=== PATIENT | male | born 1945 | race Caucasian/White ===

== ENCOUNTER 2019-03-17 06:30 | Day surgery (SDC) | payer BC, MEDICARE ==
[2019-03-17] MEDS ORDERED: Bupivacaine 0.5% 50 ML MDV ONE (06:46)
[2019-03-17] MEDS ORDERED: Lidocaine 1% with EPINEPHrine 1:100,000 50 ML MDV ONE (06:46)
[2019-03-17] MEDS ORDERED: Sodium Chloride 0.9% 1,000 ML IV SCH (07:00)
[2019-03-17] MEDS ORDERED: Dexamethasone 4 MG/ML SDV ONE (07:24)
[2019-03-17] MEDS ORDERED: Neostigmine Methylsulfate 1 MG/ML 5 ML Syringe ONE (07:24)
[2019-03-17] MEDS ORDERED: Glycopyrrolate 0.2 MG/ML 5 ML MDV ONE (07:24)
[2019-03-17] MEDS ORDERED: Ondansetron 4 MG/2 ML SDV ONE (07:24)
[2019-03-17] MEDS ORDERED: Succinylcholine 200 MG/10 ML MDV ONE (07:24)
[2019-03-17] MEDS ORDERED: Ketorolac 60 MG/2 ML SDV ONE (07:24)
[2019-03-17] MEDS ORDERED: Propofol 200 MG/20 ML SDV ONE (07:24)
[2019-03-17] MEDS ORDERED: Rocuronium 50 MG/5 ML Vial ONE (07:24)
[2019-03-17] MEDS ORDERED: fentaNYL 250 MCG/5 ML SDV ONE (07:26)
[2019-03-17] MEDS ORDERED: ceFAZolin 2 GM in Premix Bag 1 BAG IV ONE (07:30)
[2019-03-17] MEDS ORDERED: metroNIDAZOLE/Normal Saline 500 MG in Premix Bag 1 BAG IV ONE (07:30)
[2019-03-17] MEDS ORDERED: Ropivacaine 30 ML, dexAMETHasone 8 MG, EPINEPHrine 0.4 MG, Sodium Chloride 0.9% 47.6 ML NERVRT SCH ×4 (08:00)
[2019-03-17] MEDS ORDERED: fentaNYL 100 MCG/2 ML SDV ONE (08:24)
--- NOTE | 2019-03-17 15:14 | OR ---
DATE OF PROCEDURE: 03/17/2019 SURGEON: Jacek Oh MD PROCEDURE: Right total extraperitoneal hernia repair. PREOPERATIVE DIAGNOSIS: Hernia. POSTOPERATIVE DIAGNOSIS: Hernia. COMPLICATIONS: None. TRACK SERVICE PERSON: None. ANESTHESIA: General. RISKS: Risks, benefits, alternatives, and limitations including, but not limited to infection, bleeding, testicular atrophy, injury to testicular structures, requirement for reoperation, other risks not listed here were explained to the patient, who wished to proceed. FINDINGS: Direct inguinal hernia. PROCEDURE IN DETAIL: The patient was placed in a supine position. An infraumbilical linear incision was made. This was carried with electrocautery down to the fascia, which was also opened with electrocautery. The preperitoneal space was developed with a Pean. The dissecting balloon was then inserted and pumped approximately 30 times. This was under direct visualization. This was held for 1 minute. The retaining balloon was then insufflated. Two additional 5 mm ports were entered under direct visualization. The dissection initiated from a lateral to medial approach. This was blunt in nature in an avascular plane. The hernia was readily identified. The peritoneum was deflected and removed from the hernia space. During this dissection, the vas deferens and associated blood vessels were identified and not interacted with them any way. At no time was the "triangle of doom" nor the "triangle of pain" entered or interacted with. The mesh was then cut just with a curved aspect, introduced, and unfolded. This overlapped the pubic symphysis approximately 1 to 2 cm and was unfolded without difficulty. The operating area was inspected for bleeding or abnormality. None was noted. The mesh was held in place as the space was deflated. Ports were removed. The fascia was closed with #1 Vicryl in interrupted fashion, irrigated, closed with 3-0 Vicryl and 4-0 Vicryl, Dermabond was applied. The patient tolerated the procedure well. Jacek Oh MD /[id number]
--- NOTE | 2019-03-17 15:20 | OR ---
DATE OF PROCEDURE: 03/17/2019 SURGEON: Jacek Oh MD PROCEDURE: Total transversus abdominis plane block. COMPLICATIONS: None. GATE SERVICES SUPERVISOR: None. RISKS: Risks, benefits, alternatives, and limitations including, but not limited to infection, bleeding, and injury were explained to the patient who wished to proceed. PROCEDURE IN DETAIL: The patient was placed in supine position. The left transversus plane was identified first. This was injected under direct ultrasound guidance with approximately 90% of the solution. The right side was then performed in a same manner, same fashion, same technique in the same sequence using the same equipment, except for different needle and syringe. The patient tolerated the procedure well. Jacek Oh MD /[id number]
== END 2019-03-17 10:30 | disposition home or self-care (01) ==
LOC: JP.SDS 06:30
PROVIDERS: ATTEND Surgery
DX: K40.90 Unilateral inguinal hernia, without obstruction or gangrene, not specified as recurrent (principal); G89.18 Other acute postprocedural pain; M48.00 Spinal stenosis, site unspecified; N40.0 Benign prostatic hyperplasia without lower urinary tract symptoms
CPT/HCPCS: C1781; J0171; J0330; J0690; J1100; J1885; J2405; J2704; J2710; J2795; J3010; J3490; J7030; J7050

== ENCOUNTER 2020-02-17 08:56 | Emergency (ER) | payer OTHER, MEDICARE ==
--- NOTE | 2020-02-17 10:17 | EDM.PDOC ---
ED HPI GENERAL MEDICAL PROBLEM - General Chief Complaint: Cardiovascular Problem Stated Complaint: mid sternal pain Time Seen by Provider: 02/17/20 09:00 Source of Information: Reports: Patient, Family History Limitations: Reports: No Limitations - History of Present Illness INITIAL COMMENTS - FREE TEXT/NARRATIVE: 74-year-old male with no previous cardiac history, presents with 2 to 3 days of escalating substernal and epigastric pain with activity. This morning he was uncomfortable enough to have pallor and diaphoresis. Initially he thought antacids helping but it did not help this morning. It goes away with rest. The pain was fairly intense when he came into the hospital but by the time we got him into the emergency room it had resolved again. Onset: Gradual (Gradually worsening over the past several days) Location: Reports: Chest, Abdomen Improves with: Reports: Rest Worsens with: Reports: Other (Activity) Associated Symptoms: Reports: Chest Pain. Denies: Confusion, Cough, Fever/Chills, Nausea/Vomiting, Shortness of Breath Mid-Sternal Pain Score (Numeric/FACES): 7 - Related Data Allergies Allergy/AdvReac Type Severity Reaction Status Date / Time No Known Allergies Allergy Verified 02/17/20 09:01 Home Meds: Home Meds NK [No Known Home Meds] 02/17/20 [History] Past Medical History HEENT History: Reports: Impaired Vision Gastrointestinal History: Reports: None - Infectious Disease History Infectious Disease History: Reports: Chicken Pox, Shingles - Past Surgical History Head Surgeries/Procedures: Reports: None HEENT Surgical History: Reports: None GI Surgical History: Reports: Colonoscopy Dermatological Surgical History: Reports: None Social & Family History - Family History Family Medical History: Noncontributory - Tobacco Use Smoking Status *Q: Never Smoker Second Hand Smoke Exposure: No - Caffeine Use Caffeine Use: Reports: Coffee - Alcohol Use Days Per Week of Alcohol Use: 7 Number of Drinks Per Day: 1 Total Drinks Per Week: 7 - Recreational Drug Use Recreational Drug Use: No ED ROS GENERAL - Review of Systems Review Of Systems: See Below Constitutional: Denies: Fever, Chills HEENT: Reports: No Symptoms (Pain does not radiate to the jaw or teeth) Respiratory: Denies: Shortness of Breath, Cough Cardiovascular: Reports: Chest Pain. Denies: Palpitations GI/Abdominal: Reports: Abdominal Pain (Epigastric area only). Denies: Nausea, Vomiting Skin: Reports: Pallor (Just this morning only), Diaphoresis Neurological: Reports: No Symptoms ED EXAM, GENERAL - Physical Exam Exam: See Below Exam Limited By: No Limitations General Appearance: Alert, No Apparent Distress Head: Atraumatic Respiratory/Chest: No Respiratory Distress, Lungs Clear Cardiovascular: Regular Rate, Rhythm GI/Abdominal: Soft, Non-Tender, Other (I cannot reproduce his pain with palpation of the upper abdomen) Extremities: Normal Inspection. No: Pedal Edema Neurological: Alert, Oriented Psychiatric: Normal Affect, Normal Mood Skin Exam: Warm, Dry EKG INTERPRETATION Rhythm: NSR Course - Vital Signs Last Recorded V/S: Last Vital Signs Temp 97.2 F 02/17/20 09:04 Pulse 70 02/17/20 11:32 Resp 15 02/17/20 11:32 BP 159/69 H 02/17/20 11:32 Pulse Ox 99 02/17/20 11:32 - Orders/Labs/Meds Orders: Active Orders 24 hr Category Date Time Status EKG 12 Lead [EK] Routine Ther 02/17/20 09:09 Ordered Labs: Laboratory Tests 02/17/20 02/17/20 Range/Units 09:50 09:50 WBC 6.1 (4.5-11.0) K/uL RBC 4.43 (4.30-5.90) M/uL Hgb 13.9 (12.0-15.0) g/dL Hct 42.5 (40.0-54.0) % MCV 96 (80-98) fL MCH 31 (27-31) pg MCHC 33 (32-36) % Plt Count 258 (150-400) K/uL Neut % (Auto) 55 (36-66) % Lymph % (Auto) 26 (24-44) % Barber % (Auto) 8 H (2-6) % Eos % (Auto) 10 H (2-4) % Baso % (Auto) 1 (0-1) % Sodium 141 (140-148) mmol/L Potassium 3.8 (3.6-5.2) mmol/L Chloride 106 (100-108) mmol/L Carbon Dioxide 29 (21-32) mmol/L Anion Gap 5.9 (5.0-14.0) mmol/L BUN 18 (7-18) mg/dL Creatinine 1.2 (0.8-1.3) mg/dL Est Cr Clr Drug Dosing 46.78 mL/min Estimated GFR (MDRD) 59 L (>60) Glucose 109 H (74-106) mg/dL Calcium 9.0 (8.5-10.1) mg/dL Total Bilirubin 0.8 (0.2-1.0) mg/dL AST 14 L (15-37) U/L ALT 19 (12-78) U/L Alkaline Phosphatase 73 (46-116) U/L Troponin I 0.310 H* (0.000-0.056) ng/mL Total Protein 6.6 (6.4-8.2) g/dL Albumin 3.2 L (3.4-5.0) g/dL Globulin 3.4 (2.3-3.5) g/dL Albumin/Globulin Ratio 0.9 L (1.2-2.2) Meds: Medications Discontinued Medications Generic Name Dose Route Start Last Admin Trade Name Freq PRN Reason Stop Dose Admin Aspirin 324 mg 02/17/20 10:33 02/17/20 10:42 Aspirin PO 02/17/20 10:34 324 mg ONETIME ONE Administration Heparin Sodium (Porcine) 5,000 units 02/17/20 10:33 02/17/20 10:42 Heparin Sodium IVPUSH 02/17/20 10:34 5,000 units ONETIME ONE Administration Heparin Sodium/Dextrose 25,000 units in 500 mls @ 16 mls/hr 02/17/20 10:45 02/17/20 10:55 Heparin 25,000 Units In D5w 500 Ml IV 800 units/hr TITRATE ARIK 16 mls/hr Administration Protocol 800 UNITS/HR Ticagrelor 180 mg 02/17/20 10:33 02/17/20 10:42 Brilinta PO 02/17/20 10:34 180 mg ONETIME ONE Administration - Re-Assessments/Exams Free Text/Narrative Re-Assessment/Exam: 02/17/20 10:35 Initial EKG was completely normal so aspirin was held until further evaluation. CBC, CMP and troponin were obtained. Patient was kept on cardiac monitoring and redeveloped no additional pain while in the emergency room but his troponin returned elevated at 0.3. At this point he was given 324 mg of chewable aspirin, 120 mg of p.o. Brilinta, heparin bolus and heparin drip was started. Patient is discussing with his where he would like to be sent for further evaluation. 02/17/20 12:52 Patient was accepted by the hospitalist service at [facility] and will be transferred by EMS. Departure - Departure Time of Disposition: 12:27 Disposition: DC/Tfer to Acute Hospital 02 Reason for Transfer *Q: Other Clinical Impression: Non-STEMI (non-ST elevated myocardial infarction) Referrals: Lonnie Hoyos MD [Primary Care Provider] - Forms: ED Department Discharge Care Plan Goals: Patient is to be transferred to be directly admitted to [facility] for cardiology evaluation and further care, likely needing intervention for non- STEMI. Sepsis Event Note (ED) - Evaluation Sepsis Screening Result: No Definite Risk - Focused Exam Vital Signs: Vital Signs Temp Pulse Resp BP Pulse Ox 02/17/20 11:32 70 15 159/69 H 99 02/17/20 11:12 63 11 L 155/65 H 97 02/17/20 10:25 63 13 133/59 L 100 02/17/20 10:20 58 L 16 121/49 L 99 02/17/20 09:11 58 L 10 L 140/58 L 98 02/17/20 09:04 97.2 F 62 10 L 147/61 H 99 02/17/20 08:57 62 8 L 147/61 H 100 02/17/20 08:56 62 10 L 137/50 L 98 - My Orders Last 24 Hours: My Active Orders 02/17/20 09:09 EKG 12 Lead [EK] Routine - Assessment/Plan Last 24 Hours: My Active Orders 02/17/20 09:09 EKG 12 Lead [EK] Routine
[2020-02-17] MEDS ORDERED: Ticagrelor 90 MG Tab PO ONE (10:33)
[2020-02-17] MEDS ORDERED: Heparin Sodium 5,000 Units/ML Vial IVPUSH ONE (10:33)
[2020-02-17] MEDS ORDERED: Aspirin 81 MG Tab.Chew PO ONE (10:33)
[2020-02-17] MEDS ORDERED: Heparin Sodium/D5W 25,000 UNITS/500 ML BAG IV SCH (10:45)
== END 2020-02-17 12:33 ==
LOC: JP.ED 08:56
DX: I21.4 Non-ST elevation (NSTEMI) myocardial infarction (principal)
CPT/HCPCS: 36415; 80053; 84484; 85025; 93005; 96365; 96366; 99285; A9270; J1644